=== PATIENT | female | born 1960 | race African-American/Black ===

== ENCOUNTER 2020-12-29 12:58 | Inpatient (IN) | payer OTHER ==
[2020-12-29 16:08] VITALS: BMI 20.5
[2020-12-29] MEDS ORDERED: MAG HYDROX/AL HYDROX/SIMETH 30 ML UNIT-DOSE CUP PO PRN (16:49)
[2020-12-29] MEDS ORDERED: ACETAMINOPHEN 325 MG TABLET (FP) PO PRN (16:49)
[2020-12-29] MEDS ORDERED: P-EPHED 60MG/TRIPROLIDI 2.5MG TABLET PO PRN (16:49)
[2020-12-29] MEDS ORDERED: guaiFENesin 200 MG/10 ML 10 ML UNIT-DOSE CUPS PO PRN (16:49)
[2020-12-29] MEDS ORDERED: LOPERAMIDE HCL 2 MG CAPSULE PO PRN (16:49)
[2020-12-29] MEDS ORDERED: MAGNESIUM HYDROX 2400MG/30ML ORAL SUSPENSION 30 ML CUP PO PRN (16:49)
[2020-12-29] MEDS ORDERED: IBUPROFEN 400 MG TABLET (FP) PO PRN (16:49)
[2020-12-29] MEDS ORDERED: MAGNESIUM CITRATE 300 ML BOTTLE PO PRN (16:49)
[2020-12-29] MEDS ORDERED: hydrOXYzine PAMOATE 25 MG CAPSULE (FP) PO PRN (16:49)
[2020-12-30] MEDS: THIAMINE HCL 100 MG TABLET (FP) PO SCH ×2 (04:18→21:13)
[2020-12-30] MEDS: MELATONIN 5 MG TABLETS PO SCH ×2 (04:18→21:13)
[2020-12-30] MEDS ORDERED: METHADONE HCL 10 MG TABLET (FOR DETOX USE ONLY) ONE (06:59)
[2020-12-30] MEDS ORDERED: LISINOPRIL 10 MG TABLET ONE (07:07)
[2020-12-30] MEDS ORDERED: amLODIPine BESYLATE 5 MG TABLET (FP) ONE (07:07)
[2020-12-30] MEDS ORDERED: ASPIRIN 81 MG CHEWABLE TABLETS ONE (07:07)
[2020-12-30] MEDS ORDERED: NICOTINE 7 MG/24 HOURS TOPICAL PATCH TD ONE (07:07)
[2020-12-30] MEDS: METHADONE HCL 10 MG TABLET PO SCH (07:08)
[2020-12-30] MEDS: amLODIPine BESYLATE 5 MG TABLET (FP) PO SCH ×2 (07:09→11:12)
[2020-12-30] MEDS: ASPIRIN 81 MG CHEWABLE TABLETS PO SCH ×2 (07:12→11:11)
[2020-12-30] MEDS: PRENATAL VITAMINS W/ FOLIC ACID TABLET (FP) PO SCH ×2 (07:13→11:12)
[2020-12-30] MEDS: LISINOPRIL 20 MG TABLET PO SCH ×2 (07:13→11:12)
[2020-12-30] MEDS: NICOTINE POLACRILEX 2 MG GUM BC PRN (07:19)
[2020-12-30 10:08] LABS: ALBUMIN 3.4 g/dl (3.4-5.0); BLOOD UREA NITROGEN 20.8 mg/dL (7-18); CALCIUM 8.9 mg/dL (8.5-10.1)
[2020-12-30 10:11] LABS: CREATININE 0.9 mg/dL (0.55-1.3); HEMATOCRIT 41.5 % (32.4-45.2); HEMOGLOBIN 13.4 GM/dL (10.7-15.3); MCH 29.7 pg (25.7-33.7); MCHC 32.2 g/dl (32.0-36.0); MEAN CELL VOLUME 92.2 fl (80-96); MEAN PLT VOLUME 7.8 fl (7.5-11.1); PLATELET COUNT 326 K/MM3 (134-434); RDW 13.4 % (11.6-15.6); WHITE BLOOD COUNT 13.5 K/mm3 (4.0-10.0)
[2020-12-30 10:13] LABS: BILIRUBIN,TOTAL 0.4 mg/dL (0.2-1); TOT PROT 7.2 g/dl (6.4-8.2)
[2020-12-30] MEDS: NICOTINE 7 MG/24 HOURS TOPICAL PATCH TD SCH (11:44)
[2020-12-30] MEDS ORDERED: TUBERCULIN PPD 5 TU/0.1ML VIAL ID ONE (11:45)
[2020-12-30] MEDS: QUEtiapine FUMARATE 100 MG TABLET (FP) PO SCH (21:13)
[2020-12-31] MEDS: METHADONE HCL 10 MG TABLET PO SCH (06:18)
[2020-12-31] MEDS: ARIPiprazole 5 MG TABLET PO SCH (10:26)
[2020-12-31] MEDS: ASPIRIN 81 MG CHEWABLE TABLETS PO SCH (10:26)
[2020-12-31] MEDS: amLODIPine BESYLATE 5 MG TABLET (FP) PO SCH (10:26)
[2020-12-31] MEDS: LISINOPRIL 20 MG TABLET PO SCH (10:26)
[2020-12-31] MEDS: PRENATAL VITAMINS W/ FOLIC ACID TABLET (FP) PO SCH (10:26)
[2020-12-31] MEDS: NICOTINE 7 MG/24 HOURS TOPICAL PATCH TD SCH (10:27)
[2020-12-31] MEDS: FLUoxetine HCL 10 MG CAPSULE PO SCH (10:27)
[2020-12-31] MEDS: QUEtiapine FUMARATE 100 MG TABLET (FP) PO SCH (21:11)
[2020-12-31] MEDS: MELATONIN 5 MG TABLETS PO SCH (21:11)
[2020-12-31] MEDS: THIAMINE HCL 100 MG TABLET (FP) PO SCH (21:11)
[2021-01-01] MEDS: METHADONE HCL 10 MG TABLET PO SCH (06:30)
[2021-01-01] MEDS: ASPIRIN 81 MG CHEWABLE TABLETS PO SCH (10:35)
[2021-01-01] MEDS: PRENATAL VITAMINS W/ FOLIC ACID TABLET (FP) PO SCH (10:35)
[2021-01-01] MEDS: LISINOPRIL 20 MG TABLET PO SCH (10:35)
[2021-01-01] MEDS: NICOTINE 7 MG/24 HOURS TOPICAL PATCH TD SCH (10:36)
[2021-01-01] MEDS: amLODIPine BESYLATE 5 MG TABLET (FP) PO SCH (10:36)
[2021-01-01] MEDS: ARIPiprazole 5 MG TABLET PO SCH (10:36)
[2021-01-01] MEDS: FLUoxetine HCL 10 MG CAPSULE PO SCH (10:36)
[2021-01-01 13:57] LABS: EPI CELLS >36 /uL (0-25.1); HYALINE CASTS 1 /uL (0-3.1); URINE APPEARANCE CLEAR; URINE BACTERIA 491 /uL (0-1359); URINE BILIRUBIN NEGATIVE (NEGATIVE); URINE COLOR YELLOW; URINE GLUCOSE (UA) NEGATIVE (NEGATIVE); URINE KETONE NEGATIVE (NEGATIVE); URINE LEUK ESTERASE TRACE (NEGATIVE); URINE NITRITE NEGATIVE (NEGATIVE); URINE PROTEIN NEGATIVE (NEGATIVE); URINE UROBILINOGEN 0.2 mg/dL (0.2-1.0); URINE WBC 37 /uL (0-25.8)
[2021-01-01 15:12] LABS: URINE CRYSTALS FEW /hpf
[2021-01-01] MEDS: QUEtiapine FUMARATE 100 MG TABLET (FP) PO SCH (21:45)
[2021-01-01] MEDS: THIAMINE HCL 100 MG TABLET (FP) PO SCH (21:45)
[2021-01-01] MEDS: MELATONIN 5 MG TABLETS PO SCH (21:45)
[2021-01-02] MEDS: METHADONE HCL 10 MG TABLET PO SCH (06:18)
[2021-01-02] MEDS: PRENATAL VITAMINS W/ FOLIC ACID TABLET (FP) PO SCH (10:20)
[2021-01-02] MEDS: FLUoxetine HCL 10 MG CAPSULE PO SCH (10:21)
[2021-01-02] MEDS: amLODIPine BESYLATE 5 MG TABLET (FP) PO SCH (10:21)
[2021-01-02] MEDS: ASPIRIN 81 MG CHEWABLE TABLETS PO SCH (10:21)
[2021-01-02] MEDS: LISINOPRIL 20 MG TABLET PO SCH (10:21)
[2021-01-02] MEDS: ARIPiprazole 5 MG TABLET PO SCH (10:21)
[2021-01-02] MEDS: NICOTINE POLACRILEX 2 MG GUM BC PRN (10:22)
[2021-01-02] MEDS: NICOTINE 7 MG/24 HOURS TOPICAL PATCH TD SCH (10:22)
[2021-01-02] MEDS: MELATONIN 5 MG TABLETS PO SCH (21:19)
[2021-01-02] MEDS: THIAMINE HCL 100 MG TABLET (FP) PO SCH (21:19)
[2021-01-02] MEDS: QUEtiapine FUMARATE 100 MG TABLET (FP) PO SCH (21:19)
[2021-01-03] MEDS: METHADONE HCL 10 MG TABLET PO SCH (05:53)
[2021-01-03] MEDS: amLODIPine BESYLATE 5 MG TABLET (FP) PO SCH (10:28)
[2021-01-03] MEDS: NICOTINE 7 MG/24 HOURS TOPICAL PATCH TD SCH (10:28)
[2021-01-03] MEDS: ASPIRIN 81 MG CHEWABLE TABLETS PO SCH (10:28)
[2021-01-03] MEDS: ARIPiprazole 5 MG TABLET PO SCH (10:28)
[2021-01-03] MEDS: LISINOPRIL 20 MG TABLET PO SCH (10:28)
[2021-01-03] MEDS: PRENATAL VITAMINS W/ FOLIC ACID TABLET (FP) PO SCH (10:28)
[2021-01-03] MEDS: FLUoxetine HCL 10 MG CAPSULE PO SCH (10:28)
[2021-01-03] MEDS: NICOTINE POLACRILEX 2 MG GUM BC PRN (10:29)
[2021-01-03] MEDS: MELATONIN 5 MG TABLETS PO SCH (21:47)
[2021-01-03] MEDS: THIAMINE HCL 100 MG TABLET (FP) PO SCH (21:47)
[2021-01-03] MEDS: QUEtiapine FUMARATE 100 MG TABLET (FP) PO SCH (21:47)
[2021-01-04] MEDS: METHADONE HCL 10 MG TABLET PO SCH (06:33)
[2021-01-04 10:11] LABS: SARS-CoV-2 NAA Not Detected (Not Detected)
[2021-01-04] MEDS: LISINOPRIL 20 MG TABLET PO SCH (10:34)
[2021-01-04] MEDS: ARIPiprazole 5 MG TABLET PO SCH (10:35)
[2021-01-04] MEDS: ASPIRIN 81 MG CHEWABLE TABLETS PO SCH (10:35)
[2021-01-04] MEDS: FLUoxetine HCL 10 MG CAPSULE PO SCH (10:35)
[2021-01-04] MEDS: amLODIPine BESYLATE 5 MG TABLET (FP) PO SCH (10:36)
[2021-01-04] MEDS: PRENATAL VITAMINS W/ FOLIC ACID TABLET (FP) PO SCH (10:36)
[2021-01-04] MEDS: NICOTINE 7 MG/24 HOURS TOPICAL PATCH TD SCH (10:36)
[2021-01-04] MEDS: QUEtiapine FUMARATE 100 MG TABLET (FP) PO SCH (21:13)
[2021-01-04] MEDS: THIAMINE HCL 100 MG TABLET (FP) PO SCH (21:13)
[2021-01-04] MEDS: MELATONIN 5 MG TABLETS PO SCH (21:13)
[2021-01-05] MEDS: METHADONE HCL 10 MG TABLET PO SCH (06:34)
[2021-01-05 07:37] VITALS: TEMP 96.8
[2021-01-05] MEDS: ASPIRIN 81 MG CHEWABLE TABLETS PO SCH (09:03)
[2021-01-05] MEDS: ARIPiprazole 5 MG TABLET PO SCH (09:03)
[2021-01-05] MEDS: FLUoxetine HCL 10 MG CAPSULE PO SCH (09:03)
[2021-01-05] MEDS: PRENATAL VITAMINS W/ FOLIC ACID TABLET (FP) PO SCH (09:03)
[2021-01-05] MEDS: LISINOPRIL 20 MG TABLET PO SCH (09:03)
[2021-01-05] MEDS: NICOTINE 7 MG/24 HOURS TOPICAL PATCH TD SCH (09:04)
[2021-01-05] MEDS: amLODIPine BESYLATE 5 MG TABLET (FP) PO SCH (09:04)
[2021-01-05 09:13] VITALS: BP 135/90; PULSE 92
== END 2021-01-05 09:35 | disposition home or self-care (01) | DRG 772 ==
LOC: YASAS 12:58 → Y5N 12-30 09:33
PROVIDERS: ADMIT Allergy & Immunology; ATTEND Allergy & Immunology
PROC: HZ42ZZZ Group Counseling for Substance Abuse Treatment, Cognitive-Behavioral (ICD-10-PCS; principal; 2020-12-30)
DX: F11.20 Opioid dependence, uncomplicated (principal); F10.20 Alcohol dependence, uncomplicated; F14.20 Cocaine dependence, uncomplicated; F17.210 Nicotine dependence, cigarettes, uncomplicated; F19.282 Other psychoactive substance dependence with psychoactive substance-induced sleep disorder; F19.24 Other psychoactive substance dependence with psychoactive substance-induced mood disorder; F31.9 Bipolar disorder, unspecified; G47.00 Insomnia, unspecified; H54.62 Unqualified visual loss, left eye, normal vision right eye; I10 Essential (primary) hypertension; I51.7 Cardiomegaly; M17.0 Bilateral primary osteoarthritis of knee; Z86.73 Personal history of transient ischemic attack (TIA), and cerebral infarction without residual deficits; Z86.19 Personal history of other infectious and parasitic diseases; Z91.19 Patient's noncompliance with other medical treatment and regimen
CPT/HCPCS: 36415; 80053; 81003; 85027; 86593; 86780; C9803; U0003; U0005